=== PATIENT | female | born 1990 ===

== ENCOUNTER 2021-04-29 16:58 | Observation (INO) | payer BC ==
[2021-04-29] MEDS ORDERED: LACTATED RINGERS 500 ML IV ONE (18:06)
[2021-04-29 18:22] LABS: Hematocrit 37.4 % (30.3-42.9); Hemoglobin 12.8 gm/dl (10.1-14.3); Mean Corpuscular HGB Conc 34 % (30-34); Mean Corpuscular Volume 87 fl (79-97); Platelet Count 257 K/mm3 (140-440); Red Blood Count 4.32 M/mm3 (3.65-5.03); Red Cell Distribution Width 13.3 % (13.2-15.2)
[2021-04-29 18:25] LABS: Bilirubin,Urine NEG (Negative); Blood,Urine NEG (Negative); Color,Urine Yellow (Yellow); Mucus,Urine FEW /HPF; Protein,Urine <15 mg/dL mg/dL (Negative); RBC,Urine < 1.0 /HPF (0.0-6.0); Urobilinogen,Urine < 2.0 mg/dL (<2.0)
[2021-04-29 18:51] LABS: Alanine Aminotransferase 6 units/L (7-56); Uric Acid 4.4 mg/dL (3.5-7.6)
[2021-04-29] MEDS ORDERED: ACETAMINOPHEN 325 MG TAB PO PRN (21:00)
[2021-04-29] MEDS ORDERED: DOCUSATE SODIUM 100 MG CAP PO PRN (21:00)
[2021-04-30] MEDS ORDERED: PRENATAL VIT27-FE FUMARATE-FOLIC ACID VIT TAB PO SCH (10:00)
[2021-04-30 10:11] LABS: Hematocrit 32.6 % (30.3-42.9); Hemoglobin 11.2 gm/dl (10.1-14.3); Mean Corpuscular HGB Conc 34 % (30-34); Mean Corpuscular Volume 88 fl (79-97); Red Blood Count 3.68 M/mm3 (3.65-5.03); Red Cell Distribution Width 13.6 % (13.2-15.2)
[2021-04-30 10:15] VITALS: BP 125/75
[2021-04-30 10:27] LABS: Platelet Count 175 K/mm3 (140-440)
[2021-04-30 10:28] LABS: Uric Acid 4.7 mg/dL (3.5-7.6)
--- NOTE | 2021-04-30 10:43 | Short Stay Summary ---
Short Stay Documentation Date of service: 04/29/21 Narrative H&P: Patient is a 31-year-old 3 para 2 who presents at 36-4/7 weeks with elevated blood pressures in the office. Upon presentation to labor and delivery she continued to have elevated blood pressures with normal labs. Decision was made to watch patient overnight and begin her on antihypertensives which was done. Patient was given labetalol 100 mg to be used twice a day. To this point she has had uncomplicated course except for an abnormal 3-hour GTT and new diagnosis of gestational diabetes - History Principal diagnosis: Gestational hypertension H&P: dictated Past Medical History: No medical history Past Surgical History: No surgical history Social history: - Allergies and Medications Current Medications: Allergies No Known Allergies Allergy (Unverified 01/21/16 19:01) Home Medications Medication Instructions Recorded Confirmed Last Taken Type Ibuprofen [Motrin 600 MG tab] 600 mg PO Q6HR #40 tablet 02/05/16 Unknown Rx Vit-Fe Fumar-FA [ 1 each PO QDAY #30 tablet 02/05/16 Unknown Rx Vitamin] labetaloL [Labetalol 100mg TAB] 100 mg PO BID #60 tablet 04/30/21 Unknown Rx Active Medications Acetaminophen (Acetaminophen 325 Mg Tab) 650 mg PO Q4H PRN PRN Reason: Pain MILD(1-3)/Fever >100.5/MYRICK Docusate Sodium (Docusate Sodium 100 Mg Cap) 100 mg PO Q12H PRN PRN Reason: Constipation Labetalol HCl (Labetalol 100 Mg Tab) 100 mg PO BID [facility] Last Admin: 04/30/21 10:00 Dose: 100 mg Documented by: Multivitamins/Iron/Calcium ( [id number]-Ci Fumarate-Folic Acid Vit Tab) 1 each PO QDAY [facility] Last Admin: 04/30/21 10:11 Dose: 1 each Documented by: - Physical exam General appearance: no acute distress, mild distress Integumentary: no rash HEENT: Atraumatic Lungs: Clear to auscultation, Normal air movement Breasts: deferred Heart: Regular rate, Normal S1, Normal S2 Gastrointestinal: normal, normoactive bowel sounds Female Genitourinary: normal - Hospital course Hospital course: Patient was admitted for observation given labetalol. On the following morning patient appeared to have well-controlled blood pressures within the normal range. Due to this finding, the decision was made to discharge the patient home on modified bedrest with antihypertensives and to have her return at 39 weeks for induction of labor. - Disposition Condition at discharge: Stable Disposition: 01 HOME / SELF CARE / HOMELESS Short Stay Discharge Plan Activity: advance as tolerated Weight Bearing Status: Weight Bear as Tolerated Diet: low salt, diabetic Follow up with: PACO COX MD [Primary Care Provider] - 7 Days Prescriptions: labetaloL [Labetalol 100mg TAB] 100 mg PO BID #60 tablet
== END 2021-04-30 11:10 | disposition home or self-care (01) ==
LOC: TRG 16:58 → APU 16:59 → UNDOADMOB 20:34 → TRG 20:34 → LD 04-30 01:05
PROVIDERS: ADMIT Obstetrics & Gynecology; ATTEND Obstetrics & Gynecology
DX: O13.3 Gestational [pregnancy-induced] hypertension without significant proteinuria, third trimester (principal); Z20.822 Contact with and (suspected) exposure to COVID-19; Z3A.36 36 weeks gestation of pregnancy
CPT/HCPCS: 36415; 59025; 81001; 82565; 83615; 84450; 84460; 84550; 85027; G0378; U0003

== ENCOUNTER 2021-05-06 18:08 | Inpatient (IN) | payer BC ==
[2021-05-06 19:23] LABS: Hemoglobin 12.2 gm/dl (10.1-14.3); Mean Corpuscular HGB Conc 34 % (30-34); Mean Corpuscular Volume 86 fl (79-97); Platelet Count 236 K/mm3 (140-440); Red Blood Count 4.17 M/mm3 (3.65-5.03); Red Cell Distribution Width 13.3 % (13.2-15.2)
[2021-05-06 19:36] LABS: Bilirubin,Urine NEG (Negative); Blood,Urine NEG (Negative); Color,Urine Amber (Yellow); Mucus,Urine 3+ /HPF; Sperm,Urine FEW /HPF (NP)
[2021-05-06 19:45] LABS: Alanine Aminotransferase 8 units/L (7-56); Uric Acid 4.5 mg/dL (3.5-7.6)
[2021-05-06] MEDS ORDERED: LACTATED RINGERS 1,000 ML IV ONE (19:53)
[2021-05-06] MEDS ORDERED: MINERAL OIL 30 ML ORAL LIQD PO PRN (20:21)
[2021-05-06] MEDS ORDERED: fentaNYL 100 MCG/2 ML INJ IV PRN (20:21)
[2021-05-06] MEDS ORDERED: OXYTOCIN 10 UNIT/1 ML INJ IM PRN (20:21)
[2021-05-06] MEDS ORDERED: METHYLERGONOVINE MALEATE 0.2 MG/ML VIAL IM PRN (20:21)
[2021-05-06] MEDS ORDERED: LOPERAMIDE 2 MG CAP PO PRN (20:21)
[2021-05-06] MEDS ORDERED: LIDOCAINE (2%) 20 MG/1 ML VIAL 20 ML MDV INFILTRATI ONE (20:21)
[2021-05-06] MEDS ORDERED: miSOPROStol 200 MCG TAB PR PRN (20:21)
[2021-05-06] MEDS ORDERED: ONDANSETRON 4 MG/2 ML INJ IV PRN (20:21)
[2021-05-06] MEDS ORDERED: BUTORPHANOL 2 MG/1 ML INJ IV PRN (20:21)
[2021-05-06] MEDS ORDERED: TERBUTALINE 1 MG/1 ML INJ SUB-Q PRN (20:21)
[2021-05-06] MEDS ORDERED: CARBOPROST TROMETHAMINE 250 MCG/1 ML INJ IM PRN (20:21)
[2021-05-06] MEDS ORDERED: ePHEDrine SULFATE 50 MG/1 ML INJ IV PRN (20:21)
[2021-05-06] MEDS ORDERED: OXYTOCIN DRIP 30 UNITS/500 ML BAG IV SCH (21:00)
[2021-05-06] MEDS ORDERED: hydrALAZINE 20 MG/1 ML INJ IV ONE (22:34)
[2021-05-06] MEDS: OXYTOCIN DRIP 30 UNITS/500 ML BAG IV SCH (22:43)
[2021-05-06] MEDS: LACTATED RINGERS 1,000 ML IV SCH (22:45)
--- NOTE | 2021-05-06 23:19 | History and Physical Report ---
History of Present Illness Date of examination: 05/06/21 Date of admission: 05/06/2021 Chief complaint: My blood pressure is high History of present illness: Pt is a 31 year old who presents today for induction of labor secondary to gestational hypertension. Pt had an uncomplicated course until 28 weeks when she was diagnosed with gestational diabetes which is diet-controlled and then recently when she began having elevated blood pressures in the office. She was admitted for observation last week but the blood pressure resolved. Today in the office her blood pressure was elevated again. We will now proceed with induction of labor secondary to labile gestational hypertension. Past History Past Medical History: no pertinent history Past Surgical History: no surgical history Family/Genetic History: heart disease, hypertension Social history: - Obstetrical History Expected Date of Delivery: 05/23/21 Actual Gestation: 37 Week(s) 5 Day(s) : 3 Para: 2 Number of Living Children: 2 Medications and Allergies Allergies Allergy/AdvReac Type Severity Reaction Status Date / Time No Known Allergies Allergy Verified 05/06/21 18:53 Home Medications Medication Instructions Recorded Confirmed Last Taken Type Ibuprofen [Motrin 600 MG tab] 600 mg PO Q6HR #40 tablet 02/05/16 05/06/21 Unknown Rx Vit-Fe Fumar-FA [ 1 each PO QDAY #30 tablet 02/05/16 05/06/21 05/04/21 22:00 Rx Vitamin] labetaloL [Labetalol 100mg TAB] 100 mg PO BID #60 tablet 04/30/21 05/06/21 05/06/21 10:00 Rx Active Meds: Active Medications Acetaminophen (Acetaminophen 325 Mg Tab) 650 mg PO Q4H PRN PRN Reason: Pain, Mild (1-3) Butorphanol Tartrate (Butorphanol 2 Mg/1 Ml Inj) 1 mg IV Q2H PRN PRN Reason: Pain, Moderate(4-6) LABOR PAIN Carboprost Tromethamine (Carboprost Tromethamine 250 Mcg/1 Ml Inj) 250 mcg IM ONCE PRN PRN Reason: Uterine Bleeding Ephedrine Sulfate (Ephedrine Sulfate 50 Mg/1 Ml Inj) 10 mg IV Q2M PRN PRN Reason: Hypotension Fentanyl (Fentanyl 100 Mcg/2 Ml Inj) 100 mcg IV Q2H PRN PRN Reason: Pain,Severe (7-10) LABOR PAIN Oxytocin/Sodium Chloride (Pitocin/Ns 30 Unit/500ml) 30 units in 500 mls @ 1 mls/hr IV TITR ADAN; Protocol Last Admin: 05/06/21 22:43 Dose: 1 ml/hr, 1 mls/hr Documented by: Lactated Ringer's (Lactated Ringers) 1,000 mls @ 125 mls/hr IV DIRECT ADAN Last Admin: 05/06/21 22:45 Dose: 125 mls/hr Documented by: Oxytocin/Sodium Chloride (Pitocin/Ns 30 Unit/500ml) 30 units in 500 mls @ 40 mls/hr IV TITR ADAN; Protocol Labetalol HCl (Labetalol 100 Mg Tab) 100 mg PO BID ADAN Last Admin: 05/06/21 21:42 Dose: 100 mg Documented by: Loperamide HCl (Loperamide 2 Mg Cap) 2 mg PO ONCE PRN PRN Reason: give with Hemabate Methylergonovine Maleate (Methylergonovine Maleate 0.2 Mg/Ml Vial) 0.2 mg IM ONCE PRN PRN Reason: Uterine Bleeding Mineral Oil (Mineral Oil 30 Ml Oral Liqd) 30 ml PO QHS PRN PRN Reason: Constipation Misoprostol (Misoprostol 200 Mcg Tab) 800 mcg MD ONCE PRN PRN Reason: Uterine Bleeding Ondansetron HCl (Ondansetron 4 Mg/2 Ml Inj) 4 mg IV Q8H PRN PRN Reason: Nausea And Vomiting Oxytocin (Oxytocin 10 Unit/1 Ml Inj) 10 unit IM ONCE PRN PRN Reason: Uterine Bleeding Terbutaline Sulfate (Terbutaline 1 Mg/1 Ml Inj) 0.25 mg SUB-Q ONCE PRN PRN Reason: Hyperstimulation/Hypertonicity Review of Systems All systems: negative Constitutional: fatigue - Vital Signs Vital signs: Vital Signs Pulse BP Pulse Ox 77 145/97 100 05/06/21 18:48 05/06/21 18:48 05/06/21 18:48 Temp Pulse Resp BP Pulse Ox 98.3 F 89 20 142/81 97 05/06/21 21:46 05/06/21 23:12 05/06/21 21:46 05/06/21 23:04 05/06/21 23:12 - Physical Exam Breasts: Cardiovascular: Regular rate, Normal S1, Normal S2 Lungs: Positive: Clear to auscultation, Normal air movement Abdomen: Positive: normal appearance, soft, normal bowel sounds. Negative: distention, tenderness Genitourinary (Female): Positive: normal external genitalia, normal perenium Vulva: both: normal Vagina: Positive: normal moisture. Negative: discharge Cervix: Negative: lesion, discharge Uterus: Positive: normal size, normal contour Adnexa: both: normal Anus/Rectum: Positive: normal perianal skin, heme negative. Negative: rectal mass, hemorrhoids Extremities: Deep Tendon Reflex Grade: Normal +2 - Obstetrical FHR: auscultation normal Cervical Dilatation: 1.5 Cervical Effacement Percentage: 50 station: -2 Uterine Contraction Frequency (min): 6 Uterine Contraction Intensity: Moderate Results Result Diagrams: 05/06/21 19:10 05/06/21 19:10 Abnormal lab results 05/06/21 Range/Units 19:10 Creatinine 0.5 L (0.6-1.2) mg/dL All other labs normal. Assessment and Plan IUP at 37-5/7 weeks with gestational hypertension. Will proceed with induction of labor for same. We will begin Pitocin. Patient to continue labetalol was previously prescribed. Labs have been normal. Anticipate
[2021-05-06] MEDS ORDERED: hydrALAZINE 20 MG/1 ML INJ IV PRN (23:42)
[2021-05-07] MEDS: ACETAMINOPHEN 325 MG TAB PO PRN ×3 (00:56→15:41)
[2021-05-07] MEDS: LACTATED RINGERS 1,000 ML IV SCH ×4 (05:10→23:05)
[2021-05-07] MEDS: OXYTOCIN DRIP 30 UNITS/500 ML BAG IV SCH (12:42)
--- NOTE | 2021-05-07 16:09 | Progress Note ---
Assessment and Plan HD2 for induction for gestational hypertension. Was able to AROM patient for clear fluid. We will continue Pitocin augmentation. Anticipate . Subjective - Subjective Date of service: 05/07/21 Interval history: Pt is a 31 year old who presents today for induction of labor secondary to gestational hypertension. Pt had an uncomplicated course until 28 weeks when she was diagnosed with gestational diabetes which is diet-controlled and then recently when she began having elevated blood pressures in the office. She was admitted for observation last week but the blood pressure resolved. Today in the office her blood pressure was elevated again. We will now proceed with induction of labor secondary to labile gestational hypertension. Patient reports: new complaints, loss of fluid, movement normal Objective - Vital Signs Vital Signs: Vital Signs - 12hr 05/07/21 05/07/21 05/07/21 04:14 04:19 04:24 Temperature Pulse Rate 73 72 71 Blood Pressure O2 Sat by Pulse 98 97 97 Oximetry 05/07/21 05/07/21 05/07/21 04:29 04:45 04:50 Temperature Pulse Rate 80 77 Blood Pressure O2 Sat by Pulse 98 96 99 Oximetry 05/07/21 05/07/21 05/07/21 04:55 05:00 05:03 Temperature 98.0 F Pulse Rate 73 82 83 Blood Pressure 135/90 O2 Sat by Pulse 99 99 Oximetry 05/07/21 05/07/21 05/07/21 05:05 05:10 05:15 Temperature Pulse Rate 87 80 81 Blood Pressure O2 Sat by Pulse 100 99 97 Oximetry 05/07/21 05/07/21 05/07/21 05:20 05:25 05:30 Temperature Pulse Rate 78 75 79 Blood Pressure O2 Sat by Pulse 97 98 98 Oximetry 05/07/21 05/07/21 05/07/21 05:34 05:35 05:40 Temperature Pulse Rate 76 79 81 Blood Pressure 159/93 O2 Sat by Pulse 98 99 Oximetry 05/07/21 05/07/21 05/07/21 05:45 05:50 05:55 Temperature Pulse Rate 83 87 78 Blood Pressure O2 Sat by Pulse 99 99 99 Oximetry 05/07/21 05/07/21 05/07/21 06:00 06:04 06:05 Temperature Pulse Rate 80 77 95 H Blood Pressure 155/93 O2 Sat by Pulse 97 98 Oximetry 05/07/21 05/07/21 05/07/21 06:10 06:15 06:20 Temperature Pulse Rate 83 79 84 Blood Pressure O2 Sat by Pulse 99 97 99 Oximetry 05/07/21 05/07/21 05/07/21 06:25 06:30 06:34 Temperature Pulse Rate 78 82 78 Blood Pressure 167/97 O2 Sat by Pulse 98 97 Oximetry 05/07/21 05/07/21 05/07/21 06:35 06:40 06:45 Temperature Pulse Rate 91 H 77 82 Blood Pressure O2 Sat by Pulse 99 99 98 Oximetry 05/07/21 05/07/21 05/07/21 06:50 06:55 06:59 Temperature Pulse Rate 88 92 H 89 Blood Pressure 159/77 O2 Sat by Pulse 98 98 Oximetry 05/07/21 05/07/21 05/07/21 07:00 07:05 07:07 Temperature Pulse Rate 88 91 H 91 H Blood Pressure 141/89 O2 Sat by Pulse 98 98 Oximetry 05/07/21 05/07/21 05/07/21 07:10 07:15 07:20 Temperature Pulse Rate 88 93 H 89 Blood Pressure O2 Sat by Pulse 99 100 100 Oximetry 05/07/21 05/07/21 05/07/21 07:25 07:30 07:34 Temperature Pulse Rate 92 H 86 86 Blood Pressure 143/90 O2 Sat by Pulse 99 100 Oximetry 05/07/21 05/07/21 05/07/21 07:35 07:40 07:45 Temperature Pulse Rate 89 89 83 Blood Pressure O2 Sat by Pulse 100 99 100 Oximetry 05/07/21 05/07/21 05/07/21 07:50 07:55 08:00 Temperature Pulse Rate 88 89 84 Blood Pressure O2 Sat by Pulse 99 100 100 Oximetry 05/07/21 05/07/21 05/07/21 08:04 08:05 08:10 Temperature Pulse Rate 79 80 87 Blood Pressure 124/71 O2 Sat by Pulse 100 99 Oximetry 05/07/21 05/07/21 05/07/21 08:15 08:20 08:25 Temperature Pulse Rate 84 81 81 Blood Pressure O2 Sat by Pulse 99 99 99 Oximetry 05/07/21 05/07/21 05/07/21 08:30 08:35 08:57 Temperature Pulse Rate 85 87 96 H Blood Pressure 128/80 O2 Sat by Pulse 100 99 100 Oximetry 05/07/21 05/07/21 05/07/21 09:02 09:06 09:07 Temperature Pulse Rate 90 85 93 H Blood Pressure 154/84 O2 Sat by Pulse 99 99 Oximetry 05/07/21 05/07/21 05/07/21 09:12 09:17 09:22 Temperature Pulse Rate 105 H 85 97 H Blood Pressure O2 Sat by Pulse 100 100 100 Oximetry 05/07/21 05/07/21 05/07/21 09:27 09:32 09:35 Temperature Pulse Rate 95 H 99 H 93 H Blood Pressure 141/91 O2 Sat by Pulse 100 99 Oximetry 05/07/21 05/07/21 05/07/21 09:37 09:42 09:47 Temperature Pulse Rate 89 93 H 106 H Blood Pressure O2 Sat by Pulse 99 100 100 Oximetry 05/07/21 05/07/21 05/07/21 09:52 09:53 09:57 Temperature Pulse Rate 89 95 H 98 H Blood Pressure 151/97 151/97 O2 Sat by Pulse 100 100 Oximetry 05/07/21 05/07/21 05/07/21 10:02 10:04 10:07 Temperature Pulse Rate 90 94 H 86 Blood Pressure 153/102 O2 Sat by Pulse 99 99 Oximetry 05/07/21 05/07/21 05/07/21 10:12 10:17 10:22 Temperature Pulse Rate 87 98 H 103 H Blood Pressure O2 Sat by Pulse 100 100 100 Oximetry 05/07/21 05/07/21 05/07/21 10:27 10:39 10:44 Temperature Pulse Rate 96 H 96 H 99 H Blood Pressure 142/92 O2 Sat by Pulse 100 100 99 Oximetry 05/07/21 05/07/21 05/07/21 10:49 10:54 10:59 Temperature Pulse Rate 99 H 94 H 94 H Blood Pressure O2 Sat by Pulse 99 99 99 Oximetry 05/07/21 05/07/21 05/07/21 11:04 11:09 11:14 Temperature Pulse Rate 91 H 90 80 Blood Pressure 137/89 O2 Sat by Pulse 99 99 98 Oximetry 05/07/21 05/07/21 05/07/21 11:19 11:24 11:29 Temperature Pulse Rate 81 71 89 Blood Pressure O2 Sat by Pulse 98 98 97 Oximetry 05/07/21 05/07/21 05/07/21 11:34 11:39 11:44 Temperature Pulse Rate 88 87 89 Blood Pressure 118/75 O2 Sat by Pulse 99 99 99 Oximetry 05/07/21 05/07/21 05/07/21 11:49 11:54 11:59 Temperature Pulse Rate 88 87 86 Blood Pressure O2 Sat by Pulse 98 98 99 Oximetry 05/07/21 05/07/21 05/07/21 12:04 12:09 12:14 Temperature Pulse Rate 88 49 L 43 L Blood Pressure 107/68 O2 Sat by Pulse 99 99 99 Oximetry 05/07/21 05/07/21 05/07/21 12:19 12:24 12:29 Temperature Pulse Rate 101 H 87 51 L Blood Pressure O2 Sat by Pulse 100 99 98 Oximetry 05/07/21 05/07/21 05/07/21 12:34 12:39 12:44 Temperature Pulse Rate 104 H 99 H 100 H Blood Pressure 123/78 O2 Sat by Pulse 100 99 100 Oximetry 05/07/21 05/07/21 05/07/21 12:49 12:54 12:59 Temperature Pulse Rate 92 H 89 90 Blood Pressure O2 Sat by Pulse 99 99 99 Oximetry 05/07/21 05/07/21 05/07/21 13:04 13:09 13:19 Temperature Pulse Rate 89 98 H 95 H Blood Pressure 130/77 O2 Sat by Pulse 99 99 100 Oximetry 05/07/21 05/07/21 05/07/21 13:24 13:29 13:34 Temperature Pulse Rate 87 81 80 Blood Pressure 106/61 O2 Sat by Pulse 99 98 98 Oximetry 05/07/21 05/07/21 05/07/21 13:39 13:44 13:49 Temperature Pulse Rate 95 H 85 88 Blood Pressure O2 Sat by Pulse 98 99 99 Oximetry 05/07/21 05/07/21 05/07/21 13:54 13:59 14:04 Temperature Pulse Rate 92 H 89 82 Blood Pressure 122/73 O2 Sat by Pulse 99 100 99 Oximetry 05/07/21 05/07/21 05/07/21 14:09 14:14 14:19 Temperature Pulse Rate 86 86 89 Blood Pressure O2 Sat by Pulse 100 99 99 Oximetry 05/07/21 05/07/21 05/07/21 14:24 14:29 14:34 Temperature Pulse Rate 77 72 78 Blood Pressure O2 Sat by Pulse 98 99 99 Oximetry 05/07/21 05/07/21 05/07/21 14:35 14:39 14:44 Temperature Pulse Rate 78 76 40 L Blood Pressure 132/78 O2 Sat by Pulse 100 99 Oximetry 05/07/21 05/07/21 05/07/21 14:49 14:54 14:59 Temperature Pulse Rate 43 L 60 77 Blood Pressure O2 Sat by Pulse 99 99 99 Oximetry 05/07/21 05/07/21 05/07/21 15:04 15:09 15:14 Temperature Pulse Rate 85 81 89 Blood Pressure 140/81 O2 Sat by Pulse 99 99 99 Oximetry 05/07/21 05/07/21 05/07/21 15:19 15:24 15:29 Temperature Pulse Rate 89 83 95 H Blood Pressure O2 Sat by Pulse 99 100 98 Oximetry 05/07/21 05/07/21 05/07/21 15:34 15:39 15:44 Temperature Pulse Rate 90 84 82 Blood Pressure 144/93 O2 Sat by Pulse 100 99 100 Oximetry 05/07/21 05/07/21 15:49 15:54 Temperature Pulse Rate 96 H 87 Blood Pressure O2 Sat by Pulse 100 100 Oximetry - Exam Breasts: deferred Cervical Dilatation: 2 Cervical Effacement Percentage: 50 station: -2 Uterine Contraction Pattern: Irregular Uterine Tone Measurement Phase: Contraction Uterine Contraction Intensity: Mild - Labs Labs: Abnormal Labs 05/06/21 19:10 Creatinine 0.5 L Laboratory Results - last 24 hr 05/06/21 05/06/21 05/06/21 19:10 19:10 19:10 WBC 7.9 RBC 4.17 Hgb 12.2 Hct 36.0 MCV 86 MCH 29 MCHC 34 RDW 13.3 Plt Count 236 Creatinine 0.5 L Estimated GFR > 60 POC Glucose Uric Acid 4.5 AST 14 ALT 8 Lactate Dehydrogenase 180 Urine Color Ese Urine Turbidity Hazy Urine pH 5.0 Ur Specific [place] 1.026 Urine Protein 30 mg/dl Urine Glucose (UA) Neg Urine Ketones 20 Urine Blood Neg Urine Nitrite Neg Urine Bilirubin Neg Urine Urobilinogen 2.0 Ur Leukocyte Esterase Neg Urine WBC (Auto) 2.0 Urine RBC (Auto) 4.0 U Epithel Cells (Auto) 5.0 Urine Mucus 3+ Urine Sperm Few Syphilis IgG Antibody Coronavirus (PCR) Blood Type Antibody Screen 05/06/21 05/06/21 05/07/21 20:48 20:48 01:24 WBC RBC Hgb Hct MCV MCH MCHC RDW Plt Count Creatinine Estimated GFR POC Glucose 82 Uric Acid AST ALT Lactate Dehydrogenase Urine Color Urine Turbidity Urine pH Ur Specific [place] Urine Protein Urine Glucose (UA) Urine Ketones Urine Blood Urine Nitrite Urine Bilirubin Urine Urobilinogen Ur Leukocyte Esterase Urine WBC (Auto) Urine RBC (Auto) U Epithel Cells (Auto) Urine Mucus Urine Sperm Syphilis IgG Antibody Nonreactive Coronavirus (PCR) Blood Type O POSITIVE Antibody Screen Negative 05/07/21 05/07/21 05/07/21 06:24 09:15 10:04 WBC RBC Hgb Hct MCV MCH MCHC RDW Plt Count Creatinine Estimated GFR POC Glucose 71 89 Uric Acid AST ALT Lactate Dehydrogenase Urine Color Urine Turbidity Urine pH Ur Specific [place] Urine Protein Urine Glucose (UA) Urine Ketones Urine Blood Urine Nitrite Urine Bilirubin Urine Urobilinogen Ur Leukocyte Esterase Urine WBC (Auto) Urine RBC (Auto) U Epithel Cells (Auto) Urine Mucus Urine Sperm Syphilis IgG Antibody Coronavirus (PCR) Negative Blood Type Antibody Screen
[2021-05-07] MEDS ORDERED: NALOXONE 2 MG/2 ML INJ IV PRN (23:11)
[2021-05-07] MEDS ORDERED: ePHEDrine SULFATE 50 MG/1 ML INJ IV PRN (23:11)
--- NOTE | 2021-05-07 23:11 | Anesthesia Consultation ---
Anesthesia Consult and Med Hx Date of service: 05/07/21 - Airway Anesthetic Teeth Evaluation: Poor ROM Head & Neck: Adequate Mental/Hyoid Distance: Adequate Mallampati Class: Class II Intubation Access Assessment: Probably Good - Pulmonary Exam CTA: Yes - Cardiac Exam Cardiac Exam: RRR - Pre-Operative Health Status ASA Pre-Surgery Classification: ASA3 Proposed Anesthetic Plan: Epidural - Pulmonary Hx Smoking: No Hx Asthma: No Hx Respiratory Symptoms: No SOB: No COPD: No Home Oxygen Therapy: No Hx Pneumonia: No - Cardiovascular System Hx Hypertension: Yes Hx Coronary Artery Disease: No Hx Heart Attack/AMI: No Hx Angina: No Hx Percutaneous Transluminal Coronary Angioplasty (PTCA): No Hx Cardia Arrhythmia: No Hx Pacemaker: No Hx Internal Defibrillator: No Hx Valvular Heart Disease: No Hx Heart Murmur: No Hx Peripheral Vascular Disease: No - Central Nervous System Hx Neuromuscular Disorder: No Hx Seizures: No CVA: No Hx Back Pain: Yes Hx Psychiatric Problems: No - Gastrointestinal Hx Ulcer: No Hx Gastroesophageal Reflux Disease: Yes - Endocrine Hx Renal Disease: No Hx End Stage Renal Disease: No Hx Cirrhosis: No Hx Liver Disease: No Hx Insulin Dependent Diabetes: No Hx Non-Insulin Dependent Diabetes: No Hx Thyroid Disease: No Hx Hypothyroidism: No Hx Hyperthyroidism: No - Hematic Hx Anemia: No Hx Sickle Cell Disease: No - Other Systems Hx Alcohol Use: No Hx Substance Use: No Hx Cancer: No Hx Obesity: Yes
[2021-05-07] MEDS ORDERED: fentaNYL-BUPIV 2 MCG/ML-0.125% 200 MCG/100 ML BAG EPIDURAL SCH (23:45)
--- NOTE | 2021-05-08 00:07 | Progress Note ---
Labor Epidural - Labor Epidural Start Time: 23:50 Stop Time: 23:58 Performed by:: ROBERTH FOSTER Procedure: Patient is requesting a laboring epidural for laboring pain. Patient IDed, H&P reviewed, all questions and concerns were answered, and consent was signed. Timeout was performed at bedside. Patient in sitting position. Sterile prep and drape was performed. [3] ml of 1% lidocaine skin wheal at L[3]- L [4]. 18- gauge [employer] epidural needle was advanced to loss of resistance with saline technique 9cm. Negative CSF negative blood. Epidural catheter advanced to [12] centimeters. [NEGATIVE] Aspiration [NEGATIVE] test dose. Sterile dressing applied. Patient tolerated procedure.
[2021-05-08] MEDS: LACTATED RINGERS 1,000 ML IV SCH (03:57)
--- NOTE | 2021-05-08 07:31 | Procedure Note ---
OB Delivery Note - Delivery Date of Delivery: 05/08/21 Surgeon: PACO COX Estimated blood loss: 100cc - Vaginal Delivery presentation: vertex Delivery position: OA Intrapartum events: none Delivery induction: oxytocin Delivery augmentation: rupture of membranes Delivery monitor: external FHT, external uterine Route of delivery: Delivery placenta: spontaneous Delivery cord: nuchal cord, 3 umbilical vessels Episiotomy: none Delivery laceration: none Anesthesia: none - Infant A at 1 minute: 8 at 5 minutes: 9 Gender: Male (5 pounds 7 ounces)
[2021-05-08] MEDS ORDERED: diphenhydrAMINE 25 MG CAP PO PRN (11:30)
[2021-05-08] MEDS ORDERED: WITCH HAZEL/ GLYCERIN PAD TP PRN (12:00)
[2021-05-08] MEDS ORDERED: PROMETHAZINE 25 MG TAB PO PRN (12:00)
[2021-05-08] MEDS ORDERED: LANOLIN/ZINC/DIMETHICONE (LANSINOH) 7 GM TP PRN (12:00)
[2021-05-08] MEDS ORDERED: HYDROcodone/ACETAMINOPHEN 5-325 MG TAB PO PRN (12:00)
[2021-05-08] MEDS ORDERED: ONDANSETRON 4 MG/2 ML INJ IV PRN (12:00)
[2021-05-08] MEDS ORDERED: PROMETHAZINE 25 MG RECT SUPP PR PRN (12:00)
[2021-05-08] MEDS: IBUPROFEN 600 MG TAB PO SCH (14:17)
--- NOTE | 2021-05-08 16:29 | Post Anesthesia Evaluation ---
- Post Anesthesia Evaluation Patient Participated: Yes Airway Patent: Yes Stable Respiratory Function: Yes Nausea/Vomiting: No Temp > 96.8F: Yes Pain Manageable: Yes Adequeate Hydration: Yes Anesthesia Complications: No Block Receding Appropriately: Yes Patient on Ventilator: No
[2021-05-08 19:18] LABS: Hematocrit 31.5 % (30.3-42.9)
[2021-05-08] MEDS ORDERED: MAGNESIUM HYDROXIDE (MOM) ORAL LIQD UDC PO PRN (22:00)
[2021-05-08] MEDS: DOCUSATE SODIUM 100 MG CAP PO SCH (22:39)
[2021-05-09] MEDS: IBUPROFEN 600 MG TAB PO SCH ×4 (05:37→23:59)
--- NOTE | 2021-05-09 13:24 | Progress Note ---
Assessment and Plan PPD 1 s/p . Doing well. Plan for discharge on today. Subjective - Subjective Date of service: 05/09/21 Interval history: Pt is a 31 year old PPD 1 s/p . Doing well. Plan for discharge on today. Pt to go home on Labetalol. Follow up in office in 2 weeks Patient reports: appetite normal, voiding normally, pain well controlled, ambulating normally : doing well Objective - Vital Signs Latest vital signs: Vital Signs Temp Pulse Resp BP Pulse Ox Pulse Ox 05/09/21 10:04 96 05/09/21 08:00 96 05/09/21 05:37 18 05/09/21 00:31 98.2 F 72 20 143/79 97 05/08/21 22:39 78 18 148/91 05/08/21 19:35 96 05/08/21 16:06 98.9 F 77 22 138/82 97 05/08/21 14:03 86 20 131/75 96 Intake and Output 05/08/21 05/09/21 05/09/21 22:59 06:59 14:59 Intake Total 600 Balance 600 Intake: Oral 240 Intake, Free Water 360 Other: Total, Intake Amount 240 # Voids Void 1 - Exam Cardiovascular: Present: Regular rate, Normal S1, Normal S2 Lungs: Present: Clear to auscultation, Normal air movement Abdomen: Present: normal appearance, soft Uterus: Present: normal, firm Extremities: Present: normal
--- NOTE | 2021-05-09 13:49 | Discharge Summary ---
Providers - Providers Date of Admission: 05/06/21 20:21 Date of discharge: 05/09/21 Attending physician: PACO COX Primary care physician: PACO COX Hospitalization Reason for admission: induction of labor, other (hypertension) Delivery: Episiotomy: none Other procedures: none complications: none Discharge diagnosis: IUP at term delivered [place] baby: male Condition at discharge: Stable Disposition: 01 HOME / SELF CARE / HOMELESS Plan - Discharge Medications Prescriptions: Ibuprofen [Motrin] 800 mg PO Q8HR PRN #40 tablet PRN Reason: Pain, Mild (1-3) - Provider Discharge Summary Activity: routine, no sex for 6 weeks, no heavy lifting 4 weeks, no strenuous exercise Diet: routine Instructions: routine Additional instructions: [] Smoking cessation referral if applicable(refer to patient education folder for contact #) [] Refer to [facility]'s [facility] Booklet Call your doctor immediately for: * Fever > 100.5 * Heavy vaginal bleeding ( >1 pad per hour) * Severe persistent headache * Shortness of breath * Reddened, hot, painful area to leg or breast * Drainage or odor from incision. * Keep incision clean and dry at all times and follow doctor's instructions regarding bathing/showering - Follow up plan Follow up: PACO COX MD [Primary Care Provider] - 14 Days
[2021-05-09] MEDS: DOCUSATE SODIUM 100 MG CAP PO SCH ×2 (18:06→22:14)
[2021-05-09] MEDS: PRENATAL VIT27-FE FUMARATE-FOLIC ACID VIT TAB PO SCH (18:06)
[2021-05-10] MEDS: IBUPROFEN 600 MG TAB PO SCH (05:50)
[2021-05-10] MEDS: DOCUSATE SODIUM 100 MG CAP PO SCH (10:20)
[2021-05-10] MEDS: PRENATAL VIT27-FE FUMARATE-FOLIC ACID VIT TAB PO SCH (10:20)
[2021-05-10 15:23] VITALS: BP 131/75
== END 2021-05-10 19:00 | disposition home or self-care (01) | DRG 807 ==
LOC: TRG 18:08 → APU 18:10 → TRG 20:21 → LD 20:21 → OB 05-08 10:22
PROVIDERS: ADMIT Obstetrics & Gynecology; ATTEND Obstetrics & Gynecology
PROC: 10E0XZZ Delivery of Products of Conception, External Approach (ICD-10-PCS; principal; 2021-05-08)
PROC: 10907ZC Drainage of Amniotic Fluid, Therapeutic from Products of Conception, Via Natural or Artificial Opening (ICD-10-PCS; 2021-05-08)
PROC: 3E033VJ Introduction of Other Hormone into Peripheral Vein, Percutaneous Approach (ICD-10-PCS; 2021-05-08)
DX: O13.4 Gestational [pregnancy-induced] hypertension without significant proteinuria, complicating childbirth (principal); Z37.0 Single live birth; Z3A.37 37 weeks gestation of pregnancy; Z20.822 Contact with and (suspected) exposure to COVID-19; O99.62 Diseases of the digestive system complicating childbirth; K21.9 Gastro-esophageal reflux disease without esophagitis; O69.81X0 Labor and delivery complicated by cord around neck, without compression, not applicable or unspecified; O24.420 Gestational diabetes mellitus in childbirth, diet controlled
CPT/HCPCS: 36415; 59025; 81001; 82565; 82962; 83615; 84450; 84460; 84550; 85014; 85018; 85027; 86592; 86850; 86900; 86901; 99211; G0378; G0463; J0360; J0595; J2405; J2590; J7120; U0003